=== PATIENT | female | born 1955 | race Caucasian/White ===

== ENCOUNTER 2017-05-30 11:05 | Day surgery (SDC) | payer MEDICARE, MEDICAID ==
[~2017-05-30] VITALS: Ht 172.7 cm; Wt 104.5 kg
[~2017-05-30 11:05] MED LIST: ALLO300T8 PO; ALPR1TAB7 PO; ESCI10TA54 PO; ESOM40CA30 PO; FURO80TA3 PO; LACT10SO7 PO; LEVO150T62 PO; PROP40TA7 PO; SIMV10TA6 PO; SPIR100T PO
[2017-05-30 11:15] VITALS: BP 126/53
[2017-05-30] MEDS ORDERED: ESCI20TA38 PO (11:27)
[2017-05-30] MEDS ORDERED: LEVO137T2 PO (11:28)
[2017-05-30] MEDS ORDERED: LACT10SO PO (11:30)
[2017-05-30] MEDS ORDERED: GABA600T2 PO (11:31)
[2017-05-30] MEDS ORDERED: LORA0.5T PO (11:32)
[2017-05-30] MEDS ORDERED: fentaNYL/PF 50MCG/1 ML 2ML syringe ONE (11:50)
[2017-05-30] MEDS ORDERED: MIDAZolam 5mg/ml 2ml vial ONE (11:50)
[2017-05-30] MEDS ORDERED: LIDOcaine Viscous 15ml cup ONE (11:50)
[2017-05-30 13:13] VITALS: BP 114/61
[2017-05-30 13:23] VITALS: BP 104/70
[2017-05-30 13:33] VITALS: BP 117/63
[2017-05-30 13:43] VITALS: BP 124/70
== END 2017-05-30 13:50 | disposition home or self-care (01) ==
LOC: GI LAB 11:05
PROVIDERS: ATTEND Internal Medicine Gastroenterology
DX: I85.00 Esophageal varices without bleeding (principal); K76.6 Portal hypertension; K31.89 Other diseases of stomach and duodenum; I27.20 Pulmonary hypertension, unspecified; K21.9 Gastro-esophageal reflux disease without esophagitis; M19.90 Unspecified osteoarthritis, unspecified site; F10.21 Alcohol dependence, in remission; Z90.710 Acquired absence of both cervix and uterus; Z86.73 Personal history of transient ischemic attack (TIA), and cerebral infarction without residual deficits; Z87.11 Personal history of peptic ulcer disease; Z87.891 Personal history of nicotine dependence; Z79.899 Other long term (current) drug therapy; Z98.890 Other specified postprocedural states
CPT/HCPCS: 43235; G0500; J2250; J3010; J7030; A4620